=== PATIENT | female | born 1970 | race American Indian/Alaskan Native ===

== ENCOUNTER 2018-08-28 07:46 | Emergency (ER) | payer OTHER ==
[2018-08-28 07:55] VITALS: BP 130/84
--- NOTE | 2018-08-28 08:26 | Emergency Department Report ---
ED Lower Extremity HPI - General Chief Complaint: Extremity Injury, Lower Stated Complaint: LFT KNEE PAIN Time Seen by Provider: 08/28/18 08:23 Source: patient, EMS Mode of arrival: Wheelchair Limitations: Physical Limitation - History of Present Illness Initial Comments: Camryn is a 48-year-old -[place] female who comes to the ER status post ground-level fall 6 days ago. She states that her knee has been hurting and swollen. Patient walks with a limp. Denies any other significant medical history. Takes no home medications. Pain is worsened with movement and weightbearing. Pain improves with rest. Slvg-dat-ocaeudm pain medicines have not helped. MD Complaint: knee injury (l) -: Sudden, days(s) (6) Injury: Knee: Right Type of Injury: blunt Place: home Severity: moderate Improves With: immobilization Worsens With: weight bearing, movement Context: fall Associated Symptoms: swelling - Related Data Previous Rx's Medication Instructions Recorded Last Taken Type predniSONE [Deltasone] 20 mg PO DAILY #5 tablet 08/28/18 Unknown Rx traMADol [Ultram] 50 mg PO Q6HR PRN #12 tablet 08/28/18 Unknown Rx Allergies Allergy/AdvReac Type Severity Reaction Status Date / Time No Known Allergies Allergy Verified 08/28/18 07:52 ED Review of Systems ROS: Stated complaint: LFT KNEE PAIN Other details as noted in HPI Comment: All other systems reviewed and negative Constitutional: denies: chills Eyes: denies: eye pain ENT: denies: throat pain Respiratory: denies: orthopnea Cardiovascular: denies: dyspnea on exertion Endocrine: denies: excessive sweating Gastrointestinal: denies: abdominal pain Genitourinary: denies: dysuria Musculoskeletal: as per HPI Skin: denies: rash Neurological: denies: headache Psychiatric: denies: as per HPI, depression Hematological/Lymphatic: denies: easy bleeding ED Past Medical Hx - Past Medical History Previous Medical History?: No - Surgical History Past Surgical History?: Yes Additional Surgical History: hysterectomy - Social History Smoking Status: Never Smoker Substance Use Type: None - Medications Home Medications: Home Medications Medication Instructions Recorded Confirmed Last Taken Type predniSONE [Deltasone] 20 mg PO DAILY #5 tablet 08/28/18 Unknown Rx traMADol [Ultram] 50 mg PO Q6HR PRN #12 tablet 01/08/19 Unknown Rx ED Physical Exam - General Limitations: Physical Limitation General appearance: alert - Head Head exam: Present: atraumatic - Eye Eye exam: Present: normal appearance Pupils: Present: normal accommodation - ENT ENT exam: Present: normal exam - Neck Neck exam: Present: normal inspection - Respiratory Respiratory exam: Present: normal lung sounds bilaterally - Cardiovascular Cardiovascular Exam: Present: regular rate - GI/Abdominal GI/Abdominal exam: Present: soft, normal bowel sounds - Rectal Rectal exam: Present: deferred - Expanded Lower Extremity Exam Left Hip exam: Present: normal inspection Upper Leg exam: Present: normal inspection Knee exam: Present: full ROM (patient has full range of motion but has pain with movement.), tenderness, swelling (generalized swelling with no 1 area of edema for which to tap), full knee extension Lower Leg exam: Present: normal inspection, full ROM Ankle exam: Present: normal inspection, full ROM Foot/Toe exam: Present: normal inspection, full ROM Neuro vascular tendon exam: Present: no vascular compromise. Absent: pulse deficit, abnormal cap refill, extremity cold to touch, pallor, foot drop Gait: Positive: observed and limited by pain - Back Exam Back exam: Present: normal inspection, full ROM - Neurological Exam Neurological exam: Present: alert, oriented X3, CN II-XII intact - Psychiatric Psychiatric exam: Present: normal affect, normal mood - Skin Skin exam: Present: warm, dry, intact ED Course Vital Signs 08/28/18 07:52 Temperature 98 F Pulse Rate 71 Respiratory 18 Rate Blood Pressure 130/84 O2 Sat by Pulse 100 Oximetry ED Lower Extremity MDM - EKG Data EKG shows normal: intervals - Radiology Data Radiology results: report reviewed, image reviewed - Medical Decision Making effusion of l knee sp fall - Differential Diagnosis ro fx Critical care attestation.: If time is entered above; I have spent that time in minutes in the direct care of this critically ill patient, excluding procedure time. ED Disposition Clinical Impression: Knee pain, Knee effusion, left, Osteoarthritis Disposition: TO HOME OR SELFCARE Is pt being admited?: No Does the pt Need Aspirin: No Condition: Stable Instructions: Osteoarthritis (ED), Knee Effusion (ED) Additional Instructions: knee immobilizer ice rest elevate crutches meds as ordered follow up ortho margarita referral below Prescriptions: predniSONE [Deltasone] 20 mg PO DAILY #5 tablet traMADol [Ultram] 50 mg PO Q6HR PRN #12 tablet PRN Reason: Pain Referrals: PRIMARY CAREMD [Primary Care Provider] - 3-5 Days NING TAVERAS MD [Staff Physician] - 3-5 Days Forms: Work/School Release Form(ED) Time of Disposition: 09:22
--- NOTE | 2018-08-28 08:55 | XRay Report ---
LEFT KNEE, 3 views: History: Pain Severe tricompartmental osteoarthritic changes are identified. The medial compartment is most affected. There is no evidence for fracture or bone lesion. A large joint effusion is identified on the lateral image. IMPRESSION: Severe osteoarthritis. Large joint effusion. No acute process is noted.
[2018-08-28] MEDS ORDERED: NORCO 5/325 PO ONE (09:12)
[2018-08-28] MEDS ORDERED: DECADRON IM ONE (09:26)
== END 2018-08-28 10:08 | disposition home or self-care (01) ==
LOC: ED 07:46
DX: M17.12 Unilateral primary osteoarthritis, left knee (principal); M25.462 Effusion, left knee; Z90.710 Acquired absence of both cervix and uterus
CPT/HCPCS: 29505; 73562; 96372; 99284; J1100